=== PATIENT | male | born 2000 | race Caucasian/White ===

== ENCOUNTER → 2023-03-19 16:24 | Outpatient (CLI) | payer BC, SELFPAY ==
--- NOTE | ~2023-03-19 | XR_ITS ---
XR_[id number]_CR DATE: 03/19/2023 17:03 INDICATION: Neck, back and hip pain TECHNIQUE: Standing AP, lateral and open-mouth and swimmer views COMPARISON: None FINDINGS: C1 and C2 are normally aligned and the odontoid process is intact. No fracture or dislocati on or locked facet or prevertebral soft tissue swelling. Cervical interspaces are well preserved. IMPRESSION: Negative Reviewed, dictated and finalized at [facility]. Reviewed, dictated and finalized at location [facility]. IMPRESSION: Negative
--- NOTE | ~2023-03-19 | XR_ITS ---
XR lumbar spine 2-3V DATE: 03/19/2023 17:03 INDICATION: Back pain, hip pain TECHNIQUE: Standing AP, lateral views COMPARISON: None FINDINGS: Normal alignment of the lumbar vertebrae. No fracture or bone destruction. The lumbar pedic les are intact. Lumbar and lumbosacral interspaces are well preserved. The sacral iliac joints appear normal. IMPRESSION: Negative Reviewed, dictated and finalized at location [facility]. IMPRESSION: Negative
--- NOTE | ~2023-03-19 | XR_ITS ---
XR thoracic spine 2V DATE: 03/19/2023 17:03 INDICATION: Back pain TECHNIQUE: AP, lateral views COMPARISON: 03/19/2023 cervical spine FINDINGS: No fracture or dislocation or bone destruction. The thoracic pedicles are intact. Thoracic interspaces are preserved. No paraspinal soft tissue thickening. IMPRESSION: Negative Reviewed, dictated and finalized at location [facility]. IMPRESSION: Negative
--- NOTE | ~2023-03-19 | XR_ITS ---
XR pelvis 1-2V DATE: 03/19/2023 17:03 INDICATION: Hip pain TECHNIQUE: AP pelvis COMPARISON: None FINDINGS: No pelvic fracture or bone destruction. The pubic symphysis and sacroiliac joints are intac t. Hip joint spaces are symmetric and well preserved. IMPRESSION: Negative Reviewed, dictated and finalized at location [facility]. IMPRESSION: Negative
== END ==
PROVIDERS: PCP Chiropractor; Visit Provider Chiropractor
DX: M54.2 Cervicalgia (principal); M54.9 Dorsalgia, unspecified; M25.551 Pain in right hip; M25.552 Pain in left hip
CPT/HCPCS: 72040; 72070; 72100; 72170